=== PATIENT | female | born 1960 | race Caucasian/White ===

== ENCOUNTER 2019-07-14 12:28 | Outpatient (CLI) | payer BC, SELFPAY ==
--- NOTE | ~2019-07-14 | XR_ITS ---
EXAMINATION: XR knee RT 3V DATE: 07/14/2019 12:58 INDICATION: Right knee pain. TECHNIQUE: 3 views of right knee were obtained. COMPARISON: None. FINDINGS: Bone alignment is normal. No fracture. There is mild tricompartmental osteoarthritis. No kn ee joint effusion. IMPRESSION: 1. Mild right knee osteoarthritis. Reviewed, dictated and finalized at location A.
== END 2019-07-14 12:29 | disposition home or self-care (01) ==
PROVIDERS: PCP Family Medicine; Visit Provider Physician Assistant
DX: M17.11 Unilateral primary osteoarthritis, right knee (principal)
CPT/HCPCS: 73562

== ENCOUNTER 2022-04-29 15:55 | Outpatient (CLI) | payer BC, SELFPAY ==
--- NOTE | ~2022-04-29 | XR_ITS ---
EXAMINATION: XR chest 2V Exam Date/Time: 04/29/2022 16:18 DIET AID HISTORY: R00.2 - Palpitations, non smoker Comparison: None available. RESULT: Lines, tubes, and devices: None. Lungs and pleura: Biapical pleural scarring, otherwise clear. Cardiomediastinal silhouette: Unremarkable. Other: No acute osseous or upper abdominal finding. IMPRESSION: No acute cardiopulmonary process. Reviewed, dictated and finalized at location K. AID
--- NOTE | 2022-04-29 16:08 | ECG_ITS ---
Measurements Intervals [facility] Rate: 71 P: 66 WV: 176 QRS: 23 QRSD: 78 T: 41 QT: 413 QTc: 449 Interpretive Statements SINUS RHYTHM NORMAL ECG NO PREVIOUS ECG AVAILABLE FOR COMPARISON Electronically Signed On 04-29-2022 16:19:09 BIOLOGY MANAGER by Jeffery Ramirez M.D.
== END 2022-04-29 15:56 | disposition home or self-care (01) ==
LOC: ANHIMG 15:58
PROVIDERS: PCP Family Medicine; Visit Provider Physician Assistant Medical
DX: R00.2 Palpitations (principal); R53.83 Other fatigue
CPT/HCPCS: 71046; 93005

== ENCOUNTER 2023-05-05 13:57 | Emergency (ER) | payer BC, SELFPAY ==
--- NOTE | ~2023-05-05 | XR_ITS ---
EXAMINATION: XR hand RT min 3V INDICATION: Right hand pain TECHNIQUE: Three views of the right hand are obtained. COMPARISON: None available FINDINGS: Bone alignment is normal. There is no fracture. There is mild osteoarthritis of multiple in terphalangeal joints. There is mild dorsal soft tissue swelling of the hand overlying the wrist and p roximal metacarpals. IMPRESSION: 1. Soft tissue swelling without acute osseous abnormality. Reviewed, dictated and finalized at location L. R TRIMMER
[2023-05-05 14:21] VITALS: BP 154/94; PULSE 71; RESP 14; TEMP 36.4; O2SAT 98
--- NOTE | 2023-05-05 14:57 | ED.EXTPRO ---
HPI - Extremity Problem General Chief complaint: Extremity Injury, Upper Stated complaint: right arm swelling Time Seen by Provider: 05/05/23 14:57 MSE was performed at 2:57 p.m. Focused HPI: Brenda is a 62-year-old female patient presenting to the ER today with complaints of localized redness and swelling to the dorsal hand with significant pain. She reports the pain radiates up into her wrist/forearm. No known injury. Reports that the symptoms started this morning. She does have a history of AFib and takes Xarelto daily. She denies missing any Xarelto dosing. She has good radial and brachial pulses General: Well-developed, well nourished, in no apparent distress Head: Normocephalic, atraumatic. Cardio: Regular rate and rhythm, s1 and s2 normal, no murmur appreciated. Resp: Clear to auscultation bilaterally, no rhonchi, rales, wheezing or rubs. Musculoskeletal: No deformity, redness and swelling localized to the right dorsal hand, tender to palpation over this area, grossly normal range of motion, weak right hand end maker when compared to the left, muscle strength strong and equal, peripheral pulse strong, no edema, no cyanosis, normal gait and station Patient screened in triage and initial orders placed. Additional care and disposition to be based upon diagnostic testing and treatment. Source: patient Mode of arrival: ambulatory Limitations: no limitations Related Data Allergies Allergy/AdvReac Type Severity Reaction Status Date / Time No Known Allergies Allergy Verified 08/04/22 14:46 [facility] Family History Family History Sibling Hypertension Family history of elevated blood lipids Cerebrovascular accident Grandparent Hypertension Carcinoma of colon Family history of malignant neoplasm of breast in first degree relative Mother Family history of malignant neoplasm of breast in first degree relative Social History Social History Smoking status: Never smoker Second hand tobacco smoke exposure: No Alcohol intake: current Substance use: never Substance use type: does not use Lack of Transportation: No Lack of Food: Never True Current Housing: I Have Housing Concerned About Future Housing: No Difficulty Paying Gas/Electric Bills: No Difficulty Paying for Meds: No Currently Unemployed: No Education: High School Diploma/GED Difficulty w/ Childcare or Family Care: No Living arrangements: alone Comments At the time of my signature, I reviewed and agree with the nursing past medical, surgical, social, and family history. There is no relevant family history pertinent to the patient complaint. Course Course Emergency Course: Portions of this record may have been created with voice recognition software. Vital Signs Vital signs: Vital Signs Temperature 36.4 C L 05/05/23 14:21 Pulse Rate 71 05/05/23 14:21 Respiratory Rate 14 05/05/23 14:21 Blood Pressure 154/94 H 05/05/23 14:21 Pulse Oximetry 98 05/05/23 14:21 Oxygen Delivery Room Air 05/05/23 14:21 Temperature 36.4 C L 05/05/23 14:21 Pulse Rate 71 05/05/23 14:21 Respiratory Rate 14 05/05/23 14:21 Blood Pressure 154/94 H 05/05/23 14:21 Pulse Oximetry 98 05/05/23 14:21 Oxygen Delivery Room Air 05/05/23 14:21 Vital signs reviewed MDM - Extremity (Nontraumatic) MDM Narrative Medical decision making narrative: At the time of visit patient is resting comfortably on the exam table. Patient appears to be nontoxic. Diagnostics: X-ray of the right hand is negative for any sign of fracture or malalignment. Does show some mild swelling to the dorsal hand Plan: i suspect patient may have hand contusion versus hematoma to the right dorsal hand. Supportive measures were discussed with the patient and they voiced understanding discharge instructions and agrees to treatment plan.
[2023-05-05 16:43] VITALS: BP 130/68; PULSE 78; RESP 16; TEMP 36.8; O2SAT 99
== END 2023-05-05 16:45 | disposition home or self-care (01) ==
LOC: ANHED 16:20
PROVIDERS: Emergency Provider Nurse Practitioner Family; PCP Family Medicine
DX: M79.641 Pain in right hand (principal); Z79.01 Long term (current) use of anticoagulants
CPT/HCPCS: 73130; 99283